=== PATIENT | female | born 1945 | race Caucasian/White ===

== ENCOUNTER 2021-11-27 09:25 | Outpatient (CLI) | payer MEDICARE, OTHER, SELFPAY ==
--- NOTE | 2021-11-27 09:46 | XR_ITS ---
WS: [email or web address] XR hand LT 2V [id number] REASON FOR EXAM: Left thumb injury FINDINGS: No fracture or focal bone lesion. Mild narrowing of the joint spaces with mild subchondral sclerosis and small marginal osteophytes in the DIP and PIP joints of the fingers, most notably the fifth finger. Similar character arthropathy in the joints of the thumb with mild lateral subluxation at the metacar pal phalangeal joint of the thumb. XR/XR hand LT 2V [id number] IMPRESSION: Osteoarthritis of the left hand with no acute abnormality identified.
== END 2021-11-27 09:26 | disposition home or self-care (01) ==
LOC: RAD 09:36
PROVIDERS: PCP Family Medicine Adult Medicine; Visit Provider Family Medicine Adult Medicine
DX: S67.02XA Crushing injury of left thumb, initial encounter (principal); X58.XXXA Exposure to other specified factors, initial encounter; M19.042 Primary osteoarthritis, left hand
CPT/HCPCS: 73120

== ENCOUNTER → 2022-08-12 09:58 | Outpatient (BNVA) | payer MEDICARE, OTHER, SELFPAY | PROVIDERS: PCP Family Medicine Adult Medicine; Visit Provider Family Medicine Adult Medicine | DX: I10 Essential (primary) hypertension (principal); E78.5 Hyperlipidemia, unspecified; F17.200 Nicotine dependence, unspecified, uncomplicated; M54.2 Cervicalgia; M54.9 Dorsalgia, unspecified; G89.29 Other chronic pain; M15.9 Polyosteoarthritis, unspecified; I73.9 Peripheral vascular disease, unspecified; J30.9 Allergic rhinitis, unspecified; J44.9 Chronic obstructive pulmonary disease, unspecified | CPT/HCPCS: 80053; 80061; 84443; 85025 ==

== ENCOUNTER 2022-09-16 12:35 | Outpatient (CLI) | payer MEDICARE, OTHER, SELFPAY ==
--- NOTE | 2022-09-16 13:00 | CT_ITS ---
WS: [email or web address] LDCT LUNG CANCER SCREENING TECHNIQUE: Noncontrast CT of the chest with coronal and sagittal reformatted images. CLINICAL INFORMATION: smoker COMPARISON: None. DLP: 74.00 mGy.cm DIvol: Mean CTDIvol: 1.60 (mGy) All CT scans at [facility] use at least one of these dose optimization techniques: automat ed exposure control; mA and/or kV adjustment per patient size (includes targeted exams where dose is matched to clinical indication); or iterative reconstruction. FINDINGS:Small hazy opacity RIGHT upper lobe measuring 5 mm. Tiny noncalcified nodule RIGHT lower lob e. Tiny noncalcified nodule LEFT upper lobe near the lung apex. Tiny subpleural nodules LEFT upper lo be anteriorly and laterally. Moderate chronic emphysematous changes. No acute pulmonary infiltrates. No focal pneumonia or pleural fluid. No mediastinal or hilar lymphadenopathy. Aortic calcification. Coronary calcification. Adrenal glands are normal. Normal GE junction. Mild thoracic kyphosis with chronic anterior wedging i n the mid thoracic spine. IMPRESSION: CT/CT lung screening [id number] LUNG-RADS: 2-Benign Appearance or Behavior FOLLOW UP: 12 Month: Continue annual screening with LDCT
== END 2022-09-16 12:36 | disposition home or self-care (01) ==
LOC: RAD 12:35
PROVIDERS: PCP Family Medicine Adult Medicine; Visit Provider Family Medicine Adult Medicine
DX: Z12.2 Encounter for screening for malignant neoplasm of respiratory organs (principal); F17.200 Nicotine dependence, unspecified, uncomplicated
CPT/HCPCS: 71271

== ENCOUNTER 2022-09-19 11:30 | Outpatient (CLI) | payer MEDICARE, OTHER, SELFPAY ==
--- NOTE | 2022-09-19 11:36 | MM_ITS ---
WS: [email or web address] BILATERAL SCREENING DIGITAL TOMOSYNTHESIS MAMMOGRAM WITH CAD HISTORY: Screening. COMPARISON: 08/05/2021, 07/09/2020 Bilateral CC and MLO views with tomosynthesis and synthetic mammography submitted. Computer aided det ection analyzed. Breast composition: The breasts are heterogeneously dense, which may obscure small masses. No suspici ous masses, microcalcifications or architectural distortion. Numerous calcifications within each [address] MM/[place] [id number] IMPRESSION: BI-RADS: 2-Benign FOLLOW UP: 1 Year Follow-up
== END 2022-09-19 11:31 | disposition home or self-care (01) ==
LOC: RAD 11:32
PROVIDERS: PCP Family Medicine Adult Medicine; Visit Provider Family Medicine Adult Medicine
DX: Z12.31 Encounter for screening mammogram for malignant neoplasm of breast (principal)
CPT/HCPCS: 77063; 77067

== ENCOUNTER 2023-02-04 10:39 | Outpatient (CLI) | payer MEDICARE, OTHER, SELFPAY ==
--- NOTE | 2023-02-04 11:00 | USCV_ITS ---
Natalia Townsend Age: 77 Gender: F : 1945 Exam Date: 02/04/2023 10:54 Ordering Phys: Inocente Ellington MD Technologist: CT [place] [facility] [place] Indication: fem stent Risk Factors: Previous Vascular Surgery: RIGHT LEFT BP: / BP: 149.0/ 73.00 0 Waveform Velocity (cm/s) Velocity (cm/s) Waveform Iliac Prox 101.5 Biphasic Iliac Mid 100.4 Biphasic Iliac Distal 113.1 Biphasic PLATE TAKE OUT WORKER Biphasic 100.9 SFA Prox 95.8 Biphasic SFA Mid 87.2 Biphasic SFA Dist 79.4 Biphasic POP 60.3 Biphasic COMPUTER TECHNOLOGY TEACHER 66.9 Biphasic DPA 55.2 Biphasic HAMLET 1.0 FINDINGS Mild diffuse plaques are noted in the iliac and femoral artery on the left side. The stented segment of the proximal SFA was found to be widely patent. Normal Doppler flow velocities throughout. Resting HAMLET 1.0. CONCLUSIONS 1. Patent stented segment of the stable femoral artery on the left side 2. Normal resting HAMLET on the left side 3. Minimal plaques in the iliac and femoral artery on the left side No similar previous studies are available for comparison Dr Byron Pretty MD [facility] (Electronically Signed) Final Date: 06 February 2023 21:51 S
== END 2023-02-04 10:40 | disposition home or self-care (01) ==
LOC: RAD 10:44
PROVIDERS: PCP Family Medicine Adult Medicine; Visit Provider Family Medicine Adult Medicine
DX: E78.5 Hyperlipidemia, unspecified (principal); F17.200 Nicotine dependence, unspecified, uncomplicated; G89.29 Other chronic pain; I10 Essential (primary) hypertension; I73.9 Peripheral vascular disease, unspecified; J44.9 Chronic obstructive pulmonary disease, unspecified; M54.2 Cervicalgia; M15.9 Polyosteoarthritis, unspecified; M54.9 Dorsalgia, unspecified
CPT/HCPCS: 93926

== ENCOUNTER → 2023-03-19 09:54 | Outpatient (BNVA) | payer MEDICARE, OTHER, SELFPAY | PROVIDERS: PCP Family Medicine Adult Medicine; Referring Provider Family Medicine Adult Medicine; Visit Provider Nurse Practitioner Family | DX: L57.0 Actinic keratosis (principal); L82.0 Inflamed seborrheic keratosis; L82.1 Other seborrheic keratosis; Z85.828 Personal history of other malignant neoplasm of skin; Z72.0 Tobacco use; L57.8 Other skin changes due to chronic exposure to nonionizing radiation; L85.3 Xerosis cutis | CPT/HCPCS: 17000; 17003; 17110; 99203 ==

== ENCOUNTER → 2023-05-26 09:33 | Outpatient (BNVA) | payer MEDICARE, OTHER, SELFPAY | PROVIDERS: PCP Family Medicine Adult Medicine; Referring Provider Family Medicine Adult Medicine; Visit Provider Nurse Practitioner Family | DX: M16.11 Unilateral primary osteoarthritis, right hip | CPT/HCPCS: 73502; 99214 ==

== ENCOUNTER → 2023-06-30 09:48 | Outpatient (BNVA) | payer MEDICARE, OTHER, SELFPAY | PROVIDERS: PCP Family Medicine Adult Medicine; Referring Provider Nurse Practitioner Family; Visit Provider Anesthesiology Pain Medicine | DX: M16.11 Unilateral primary osteoarthritis, right hip; M47.816 Spondylosis without myelopathy or radiculopathy, lumbar region | CPT/HCPCS: 99204 ==

== ENCOUNTER → 2023-07-21 13:55 | Outpatient (BNVA) | payer MEDICARE, OTHER, SELFPAY | PROVIDERS: PCP Family Medicine Adult Medicine; Visit Provider Anesthesiology Pain Medicine | DX: M16.11 Unilateral primary osteoarthritis, right hip | CPT/HCPCS: 20610; 77002; J1030; J3490 ==

== ENCOUNTER → 2023-08-12 10:30 | Outpatient (BNVA) | payer MEDICARE, OTHER, SELFPAY | PROVIDERS: PCP Family Medicine Adult Medicine; Visit Provider Anesthesiology Pain Medicine | DX: M16.11 Unilateral primary osteoarthritis, right hip; M47.816 Spondylosis without myelopathy or radiculopathy, lumbar region | CPT/HCPCS: 99214 ==

== ENCOUNTER → 2023-09-18 10:04 | Outpatient (BNVA) | payer MEDICARE, OTHER, SELFPAY | PROVIDERS: PCP Family Medicine Adult Medicine; Visit Provider Nurse Practitioner Family | DX: L82.1 Other seborrheic keratosis (principal); L57.8 Other skin changes due to chronic exposure to nonionizing radiation; L57.0 Actinic keratosis; Z08 Encounter for follow-up examination after completed treatment for malignant neoplasm; Z85.828 Personal history of other malignant neoplasm of skin | CPT/HCPCS: 17000; 99214 ==

== ENCOUNTER 2023-09-30 13:52 | Outpatient (CLI) | payer MEDICARE, OTHER, SELFPAY ==
--- NOTE | 2023-09-30 13:59 | MM_ITS ---
WS: [email or web address] BILATERAL 3D TOMOSYNTHESIS DIGITAL SCREENING MAMMOGRAPHY WITH CAD CLINICAL INFORMATION: SCREENING HISTORY: Screening mammogram. No current complaints. COMPARISON: 2021 TECHNIQUE: Bilateral CC and MLO views. FINDINGS: The breasts are composed of heterogeneous fibroglandular density tissue, which can limit the detectio n of small underlying mass lesions. No suspicious mass, asymmetry, calcifications, or architectural d istortion. No evidence of malignancy. Incidental punctate and lucent centered calcifications. IMPRESSION: MM/[place] [id number] BI-RADS: 2-Benign FOLLOW UP: 1 Year Follow-up Recommend return to annual screening mammography.
--- NOTE | 2023-09-30 14:30 | CT_ITS ---
WS: [email or web address] LDCT LUNG CANCER SCREENING TECHNIQUE: Noncontrast CT of the chest with coronal and sagittal reformatted images. CLINICAL INFORMATION: smoker COMPARISON: 2021 DLP: 61.71 mGy.cm DIvol: Mean CTDIvol: 1.10 (mGy) All CT scans at [facility] use at least one of these dose optimization techniques: automat ed exposure control; mA and/or kV adjustment per patient size (includes targeted exams where dose is matched to clinical indication); or iterative reconstruction. FINDINGS: A few tiny scattered subcentimeter nodules unchanged compared to previous. No new suspicious pulmonar y parenchymal opacities. Moderate chronic emphysematous changes. No acute pulmonary infiltrates. No mediastinal or hilar lymphadenopathy. Aortic calcification. Coronary calcification. Adrenal glands are normal. Normal GE junction. Mild thoracic kyphosis with chronic anterior wedging in the mid thor acic spine. IMPRESSION: CT/CT lung screening [id number] LUNG-RADS: 2-Benign Appearance or Behavior FOLLOW UP: 12 Month: Continue annual screening with LDCT
== END 2023-09-30 13:53 | disposition home or self-care (01) ==
LOC: RAD 13:52
PROVIDERS: PCP Family Medicine Adult Medicine; Visit Provider Family Medicine Adult Medicine
DX: Z12.31 Encounter for screening mammogram for malignant neoplasm of breast (principal); Z12.2 Encounter for screening for malignant neoplasm of respiratory organs; F17.210 Nicotine dependence, cigarettes, uncomplicated
CPT/HCPCS: 71271; 77063; 77067

== ENCOUNTER → 2023-12-21 10:58 | Outpatient (BNVA) | payer MEDICARE, OTHER, SELFPAY | PROVIDERS: PCP Family Medicine Adult Medicine; Visit Provider Anesthesiology Pain Medicine | DX: M16.11 Unilateral primary osteoarthritis, right hip; M47.816 Spondylosis without myelopathy or radiculopathy, lumbar region | CPT/HCPCS: 99214 ==

== ENCOUNTER → 2024-01-07 13:47 | Outpatient (BNVA) | payer MEDICARE, OTHER, SELFPAY | PROVIDERS: PCP Family Medicine Adult Medicine; Visit Provider Anesthesiology Pain Medicine | DX: M16.11 Unilateral primary osteoarthritis, right hip (principal) | CPT/HCPCS: 20610; 77002; J1030; J3490 ==

== ENCOUNTER → 2024-01-13 08:40 | Outpatient (BNVA) | payer MEDICARE, OTHER, SELFPAY | PROVIDERS: PCP Family Medicine Adult Medicine; Visit Provider Family Medicine Adult Medicine | DX: I10 Essential (primary) hypertension (principal); E78.5 Hyperlipidemia, unspecified; J44.9 Chronic obstructive pulmonary disease, unspecified | CPT/HCPCS: 80053; 80061; 85025 ==

== ENCOUNTER → 2024-02-03 15:16 | Outpatient (BNVA) | payer MEDICARE, OTHER, SELFPAY | PROVIDERS: PCP Family Medicine Adult Medicine; Visit Provider Family Medicine Adult Medicine | DX: R39.9 Unspecified symptoms and signs involving the genitourinary system (principal); J44.9 Chronic obstructive pulmonary disease, unspecified; R30.1 Vesical tenesmus; H65.90 Unspecified nonsuppurative otitis media, unspecified ear; J30.9 Allergic rhinitis, unspecified; J43.1 Panlobular emphysema; H65.93 Unspecified nonsuppurative otitis media, bilateral; M15.9 Polyosteoarthritis, unspecified; J30.1 Allergic rhinitis due to pollen; I10 Essential (primary) hypertension; I73.9 Peripheral vascular disease, unspecified; F17.200 Nicotine dependence, unspecified, uncomplicated; N30.01 Acute cystitis with hematuria | CPT/HCPCS: 81000 ==

== ENCOUNTER → 2024-02-18 13:14 | Outpatient (BNVA) | payer MEDICARE, OTHER, SELFPAY | PROVIDERS: PCP Family Medicine Adult Medicine; Visit Provider Family Medicine Adult Medicine | DX: R10.9 Unspecified abdominal pain (principal); M15.9 Polyosteoarthritis, unspecified; M54.17 Radiculopathy, lumbosacral region; Z79.899 Other long term (current) drug therapy | CPT/HCPCS: 81000 ==

== ENCOUNTER 2024-02-25 09:37 | Outpatient (CLI) | payer MEDICARE, OTHER, SELFPAY ==
--- NOTE | 2024-02-25 10:00 | CT_ITS ---
WS: [email or web address] CT LUMBAR SPINE, noncontrast. HISTORY: Intermittent back painbecome contant for 6 wks TECHNIQUE: Contiguous 2.0 mm axial imaging are performed. Sagittal and coronal reformats are submitte d and reviewed. All CT scans at [facility] use at least one of these dose optimization techni ques: automated exposure control; mA and/or kV adjustment per patient size (includes targeted exams w here dose is matched to clinical indication); or iterative reconstruction. IV contrast: None DLP: 870.05 mGy.cm COMPARISON: None available. S-shaped curvature and scoliosis of the lumbar spine. Advanced degenerative disc disease at L2-3 and L5-S1 with sclerosis and osteophytosis. No fractures. L1-2: Diffuse annular disc bulging with a focal LEFT foraminal disc protrusion contacting the LEFT ex iting L1 nerve root. Mild LEFT foraminal stenosis. L2-3: Diffuse osteophytic ridging and annular disc bulging. Disc osteophyte complex LEFT foraminal an d extraforaminal with contact on the exiting LEFT L2 nerve root. Moderate LEFT foraminal stenosis. Mi ld disc encroachment upon the subarticular recesses. L3-4: Mild diffuse osteophytic ridging with asymmetric disc bulging to the LEFT. Broad-based disc pro trusion extending into the LEFT foramen and extraforaminal. There is contact on the LEFT L3 and L4 ne rve roots. Moderate LEFT foraminal stenosis. L4-5: Diffuse asymmetric disc bulging to the LEFT. Disc encroachment upon the ventral thecal sac and subarticular recesses. Disc contacts the traversing L5 nerve roots. Mild bilateral foraminal stenosis . Mild central stenosis and subarticular recess stenosis. L5-S1: Osteophytic ridging and annular disc bulging. Moderate RIGHT foraminal stenosis due to disc, o steophyte and facet disease. Moderate plaque within the abdominal aorta. CT/CT lumbar spine wo/w con [id number] IMPRESSION: 1. Degenerative RIGHT curvature and scoliosis lumbar spine. 2. Multilevel areas of stenosis due to combination of disc, osteophyte and fac et disease. 3. L1-2: LEFT foraminal disc protrusion contacting the LEFT exiting L1 nerve r oot. Mild stenosis. 4. L2-3: LEFT foraminal and extraforaminal disc osteophyte contacting the exit ing LEFT L2 nerve root. Moderate LEFT foraminal stenosis. 5. L3-4: LEFT foraminal disc protrusion and broad-based bulging contacting the LEFT L3 and L4 nerve roots. Moderate LEFT foraminal stenosis. 6. L4-5: Mild central and subarticular recess stenosis. Mild foraminal stenosi s. 7. L5-S1: Moderate RIGHT foraminal stenosis due to disc and osteophyte and fac et disease.
[2024-02-25] MEDS: iohexol 350 mg/mL 500 mL Btl (per mL) IV (10:25)
== END 2024-02-25 09:38 | disposition home or self-care (01) ==
LOC: RAD 09:39
PROVIDERS: PCP Family Medicine Adult Medicine; Visit Provider Family Medicine Adult Medicine
DX: M15.9 Polyosteoarthritis, unspecified (principal); M41.86 Other forms of scoliosis, lumbar region; M48.061 Spinal stenosis, lumbar region without neurogenic claudication; M48.07 Spinal stenosis, lumbosacral region; M51.16 Intervertebral disc disorders with radiculopathy, lumbar region
CPT/HCPCS: 72133; Q9967

== ENCOUNTER → 2024-04-05 09:00 | Outpatient (BNVA) | payer MEDICARE, OTHER, SELFPAY | PROVIDERS: PCP Family Medicine Adult Medicine; Visit Provider Anesthesiology Pain Medicine | DX: G89.29 Other chronic pain; M16.11 Unilateral primary osteoarthritis, right hip; M47.816 Spondylosis without myelopathy or radiculopathy, lumbar region; M48.07 Spinal stenosis, lumbosacral region | CPT/HCPCS: 99214 ==

== ENCOUNTER → 2024-08-18 11:42 | Outpatient (BNVA) | payer MEDICARE, OTHER, SELFPAY | PROVIDERS: PCP Family Medicine Adult Medicine | DX: I10 Essential (primary) hypertension (principal); E55.9 Vitamin D deficiency, unspecified | CPT/HCPCS: 80053; 82306 ==

== ENCOUNTER 2024-10-03 10:19 | Outpatient (CLI) | payer MEDICARE, OTHER, SELFPAY ==
--- NOTE | 2024-10-03 10:30 | CT_ITS ---
WS: [email or web address] CT CHEST TECHNIQUE: Contrast enhanced CT of the chest with coronal and sagittal reformatted images. CLINICAL INFORMATION: PULMONARY NODULES COMPARISON: CT 09/30/2023 DLP: 324.[address] scans at [facility] use at least one of these dose optimization techniques: automated e xposure control; mA and/or kV adjustment per patient size (includes targeted exams where dose is matc hed to clinical indication); or iterative reconstruction. FINDINGS: A few tiny scattered subcentimeter nodules unchanged compared to previous. No new suspicious pulmon amando parenchymal opacities. Moderate chronic emphysematous changes. A few tiny nodules in the thyroid. No mediastinal or hilar lymphadenopathy. Aortic calcification. Cor onary calcification. Adrenal glands are normal. Normal GE junction. Mild thoracic kyphosis with chron ic anterior wedging in the mid thoracic spine Numerous nonspecific tiny enhancing lesions throughout both hepatic lobes described below. CT/CT chest w con* [id number] IMPRESSION: 1. A few tiny scattered subcentimeter nodules unchanged compared to previous. No new suspicious pulmonary parenchymal normalities. 2. Chronic emphysematous changes. 3. Innumerable small enhancing lesions in both hepatic lobes partially visuali zed may be due to arterioportal shunting or transient hepatic perfusion defects . Recommend further evaluation with contrast-enhanced CT abdomen pelvis with li sofia protocol to exclude pathologic lesions or metastatic disease. Also recommen d correlation with liver function tests.
--- NOTE | 2024-10-03 10:30 | MM_ITS ---
WS: [email or web address] BILATERAL SCREENING DIGITAL TOMOSYNTHESIS MAMMOGRAM WITH CAD HISTORY: screening COMPARISON: 09/30/2023, 09/19/2022, 06/14/2018 Bilateral CC and MLO views with tomosynthesis and synthetic mammography submitted. Computer aided det ection analyzed. Breast composition: There are scattered areas of fibroglandular density. No suspicious masses, microc alcifications or architectural distortion. Numerous benign round calcifications within each breast. MM/MM [facility] tomosynthesis [id number] IMPRESSION: BI-RADS: 2 - Benign. FOLLOW UP: 1 Year Follow-up
[2024-10-03] MEDS: iohexol 350 mg/mL 500 mL Btl (per mL) IV (10:54)
== END 2024-10-03 10:20 | disposition home or self-care (01) ==
LOC: RAD 10:19
PROVIDERS: PCP Family Medicine Adult Medicine
DX: Z12.31 Encounter for screening mammogram for malignant neoplasm of breast (principal); R91.8 Other nonspecific abnormal finding of lung field; R92.323 Mammographic fibroglandular density, bilateral breasts; R92.1 Mammographic calcification found on diagnostic imaging of breast; J43.9 Emphysema, unspecified; I70.0 Atherosclerosis of aorta; I25.84 Coronary atherosclerosis due to calcified coronary lesion; R93.2 Abnormal findings on diagnostic imaging of liver and biliary tract
CPT/HCPCS: 71260; 77063; 77067

== ENCOUNTER 2025-01-11 14:10 | Outpatient (CLI) | payer MEDICARE, OTHER, SELFPAY ==
--- NOTE | 2025-01-11 14:30 | CT_ITS ---
WS: [email or web address] CT ABDOMEN PELVIS WITH TRIPHASIC LIVER PROTOCOL. LEFT lower pole TECHNIQUE: Triphasic contrast-enhanced CT of the abdomen and pelvis with coronal and sagittal reformatted images. Protocol includes arterial venous and delayed hepatic imaging. CLINICAL INFORMATION: liver mass COMPARISON: 10/03/2024 DLP: 1021.[address] scans at [facility] use at least one of these dose optimization techniques: automated exposure control; mA and/or kV adjustment per patient size (includes targeted exams where dose is matched to clinical indication); or iterative reconstruction. FINDINGS: Again seen is the heterogeneous hepatic enhancement on the arterial phase imaging similar to the prior CT. Stability is reassuring. This resolves with coarse parenchyma on the portal venous and delayed imaging. Incidental small LEFT hepatic and RIGHT hepatic cysts. Largest LEFT hepatic measuring 9 mm. Mild hepatic steatosis. Mild hepatomegaly measuring 17.8 cm craniocaudal. Emphysematous changes in the lung bases with slight atelectasis. Celiac and SMA are patent. Vascular calcification. Adrenal glands are normal. Normal renal parenchymal enhancement. A few tiny renal cysts. Normal pancreatic parenchymal enhancement. Enhancing LEFT lower pole renal lesion measuring 12 x 14 mm. Small renal neoplasm not excluded. Recommend further evaluation with ultrasound. Normal sigmoid colon. Fat-containing umbilical hernia. Prior hysterectomy. Lumbar curve. Multilevel degenerative disc disease. Moderate to advanced spondylitic changes lumbar spine. Lumbar scoliosis. Advanced degenerative arthritis RIGHT hip with subchondral cystic change and sclerosis. CT/CT abdomen pelvis w con* [id number] IMPRESSION: 1. LEFT lower pole enhancing renal lesion. Recommend further evaluation with u ltrasound. This measures approximately 12 x 14 mm. Small renal neoplasm not exc luded. 2. Coarse hepatic parenchymal enhancement stable compared to previous. This is likely benign. Stability is reassuring assuming normal liver function tests. 3. Incidental small hepatic cysts described above. 4. No other acute findings. 5. Prior hysterectomy.
[2025-01-11 15:03] LABS: Blood Urea Nitrogen 7 mg/dL (8-23)
[2025-01-11] MEDS: iohexol 350 mg/mL 500 mL Btl (per mL) IV (15:18)
== END 2025-01-11 14:11 | disposition home or self-care (01) ==
PROVIDERS: PCP Family Medicine; Visit Provider Family Medicine
DX: R93.89 Abnormal findings on diagnostic imaging of other specified body structures (principal); N28.9 Disorder of kidney and ureter, unspecified; R93.2 Abnormal findings on diagnostic imaging of liver and biliary tract; K76.89 Other specified diseases of liver; Z90.49 Acquired absence of other specified parts of digestive tract; K76.0 Fatty (change of) liver, not elsewhere classified; R16.0 Hepatomegaly, not elsewhere classified; J43.9 Emphysema, unspecified; I70.90 Unspecified atherosclerosis; K42.9 Umbilical hernia without obstruction or gangrene; M43.8X6 Other specified deforming dorsopathies, lumbar region; M51.369 Other intervertebral disc degeneration, lumbar region without mention of lumbar back pain or lower extremity pain; M47.896 Other spondylosis, lumbar region; M41.86 Other forms of scoliosis, lumbar region; M16.11 Unilateral primary osteoarthritis, right hip
CPT/HCPCS: 74177; 82565; 84520

== ENCOUNTER 2025-01-24 14:07 | Outpatient (CLI) | payer MEDICARE, OTHER, SELFPAY ==
--- NOTE | 2025-01-24 14:30 | US_ITS ---
WS: [email or web address] ULTRASOUND RENAL TECHNIQUE: Ultrasound examination of both kidneys. CLINICAL INFORMATION: Left renal lesion COMPARISON: CT 01/11/2025 FINDINGS: RIGHT: Right kidney is normal in size and appearance. Echogenicity: Normal. Cortical thickness: 1.0 cm; Normal. Hydronephrosis: None. Perinephric fluid: None. Right kidney measures: 10.3 cm x 4.8 cm x 4.8 cm. LEFT: Left kidney is normal in size and appearance. Simple cyst lower pole LEFT kidney measuring 1.4 x 1.0 x 1.2 cm corresponds to the CT findings. Echogenicity: Normal. Cortical thickness: 1.0 cm; Normal. Hydronephrosis: None. Perinephric fluid: None. Left kidney measures: 9.9 cm x cm x 5.9 cm. Normal visualized aorta. Mild bladder wall thickening US/US renal BI* [id number] IMPRESSION: 1. Simple cyst lower pole LEFT kidney. 2. No other suspicious findings.
== END 2025-01-24 14:08 | disposition home or self-care (01) ==
LOC: RAD 14:08
PROVIDERS: PCP Family Medicine; Visit Provider Family Medicine
DX: N28.89 Other specified disorders of kidney and ureter (principal); N28.1 Cyst of kidney, acquired; R93.49 Abnormal radiologic findings on diagnostic imaging of other urinary organs
CPT/HCPCS: 76770

== ENCOUNTER → 2025-05-09 10:08 | Outpatient (BNVA) | payer MEDICARE, OTHER, SELFPAY | PROVIDERS: PCP Family Medicine; Visit Provider Family Medicine | DX: I10 Essential (primary) hypertension (principal) | CPT/HCPCS: 80053; 80061; 84439; 84443; 85025 ==

== ENCOUNTER 2025-10-04 10:10 | Outpatient (CLI) | payer MEDICARE, OTHER, SELFPAY ==
--- NOTE | 2025-10-04 10:13 | MM_ITS ---
WS: [email or web address] BILATERAL SCREENING DIGITAL TOMOSYNTHESIS MAMMOGRAM WITH CAD HISTORY: SCREENING COMPARISON: 10/03/2024, 09/30/2023 Bilateral CC and MLO views with tomosynthesis and synthetic mammography submitted. Computer aided detection analyzed. Breast composition: There are scattered areas of fibroglandular density. No suspicious masses, microcalcifications or architectural distortion. Scattered asymmetries and calcifications within each breast. MM/MM [facility] tomosynthesis [id number] IMPRESSION: BI-RADS: 2 - Benign. FOLLOW UP: 1 Year Follow-up
== END 2025-10-04 10:11 | disposition home or self-care (01) ==
LOC: RAD 10:10
PROVIDERS: PCP Family Medicine; Visit Provider Family Medicine
DX: Z12.31 Encounter for screening mammogram for malignant neoplasm of breast (principal); R92.323 Mammographic fibroglandular density, bilateral breasts; R92.1 Mammographic calcification found on diagnostic imaging of breast; N64.89 Other specified disorders of breast
CPT/HCPCS: 77063; 77067